=== PATIENT | female | born 1980 | race Hispanic/Latino ===

== ENCOUNTER 2017-03-09 19:19 | Emergency (ER) | payer OTHER ==
[2017-03-09 19:45] VITALS: O2SAT 98
--- NOTE | 2017-03-09 21:52 | ED.PDOC ---
History of Present Illness - General Chief Complaint: Abdominal Pain Stated Complaint: RLQ pain, 6wks Time Seen by Provider: 03/09/17 19:30 Source: patient, RN notes reviewed, Vital Signs reviewed, family Additional Information: Pt reports IUI with 4 gestations - followed by fertility specialist in [place]. Pt reports vaginal bleeding and cramping for a few hours. Pt also has some nausea and vomiting. Otherwise, no distress at rest. - History of Present Illness Timing/Duration: other - cramping started today, spotting started 4 days ago with more bright blood today. Quality: cramping Onset Location: vaginal Radiation: suprapubic Activites at Onset: none, other - sexually active prior to onset of cramping Improving Factors: nothing Worsening Factors: nothing Associated Symptoms: nausea/vomiting Allergies/Adverse Reactions: Allergies NO KNOWN ALLERGY Allergy (Verified 03/09/17 19:45) Review of Systems - Review of Systems Constitutional: States: no symptoms reported EENTM: States: no symptoms reported Respiratory: States: no symptoms reported Cardiology: States: no symptoms reported Gastrointestinal/Abdominal: States: see HPI Genitourinary: States: see HPI Musculoskeletal: States: no symptoms reported Skin: States: no symptoms reported Neurological: States: no symptoms reported Endocrine: States: no symptoms reported Hematologic/Lymphatic: States: no symptoms reported Past Medical History (General) - Patient Medical History Hx Seizures: No Hx Stroke: No Hx Dementia: No Hx Asthma: No Hx of COPD: No Hx Cardiac Disorders: No Hx Congestive Heart Failure: No Hx Pacemaker: No Hx Hypertension: No Hx Thyroid Disease: No Hx Diabetes: No Hx Gastroesophageal Reflux: No Hx Renal Disease: No Hx Cancer: No Hx of HIV: No Hx Hepatitis C: No Hx MRSA: No Surgical History: other - Vaccination History Hx Tetanus, Diphtheria Vaccination: No Hx Influenza Vaccination: No Hx Pneumococcal Vaccination: No - Social History Hx Tobacco Use: No Hx Alcohol Use: No Hx Substance Use: No Hx Substance Use Treatment: No Hx Depression: No - Female History Patient is a Female of Child Bearing Age (10 -59 yrs old): Yes Hx Last Menstrual Period: 01/19/17 Patient : Yes Hx Gestational Age: 8 Family Medical History - Family History Mother Living Status: Still Living Hx Family Hypertension: Yes Hx Family Diabetes: Yes - grandmother Hx Family Cancer: Yes - aunt -breast Physical Exam - Physical Exam General Appearance: Alert, Comfortable, No apparent distress - at rest, Well Developed, Well Groomed, Well Hydrated, Well Nourished Eyes, Ears, Nose, Throat Exam: PERRL/EOMI, normal ENT inspection, pharynx normal Neck: non-tender, full range of motion, supple, normal inspection Cardiovascular/Respiratory: regular rate, rhythm, normal peripheral pulses, no respiratory distress Gastrointestinal/Abdominal: non tender, soft Pelvic Exam: external exam normal, blood - in vaginal vault (less than 5 ml) with no active cervical bleeding noted Back Exam: normal inspection Extremity: normal range of motion, non-tender, normal inspection 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 Limited Bedside Ultrasound showed 4 intrauterine gestations with cardiac activity. Threatened miscarriage by definition. Patient stable for discharge with guidance for pelvic rest and Patient advised to call her repro endo with an update on her status. - Results/Orders Results/Orders: 03/09/17 17:30 URINE CULTURE W/COLONY COUNT Stat 03/09/17 20:33 GC CHLAMYDIA RNA,TMA Stat Laboratory Results - last 24 hr 03/09/17 03/09/17 03/09/17 17:30 19:43 19:43 WBC 9.6 RBC 4.09 L Hgb 13.2 Hct 38.4 MCV 94.0 MCH 32.2 H MCHC 34.3 RDW 13.0 Plt Count 274 MPV 8.5 Absolute Neuts (auto) 7.40 H Absolute Lymphs (auto) 1.50 Absolute Monos (auto) 0.60 Absolute Eos (auto) 0.10 Absolute Basos (auto) 0.10 Neutrophils % 76.4 Lymphocytes % 15.7 L Monocytes % 6.4 Eosinophils % 0.8 L Basophils % 0.7 Beta HCG, Quant > 984884.0 H Urine Color Yellow Urine Appearance Clear Urine pH 6.0 Ur Specific Williamson >= 1.030 Urine Protein 30 Urine Glucose (UA) Negative Urine Ketones >=160 Urine Blood Moderate H Urine Nitrite Negative Urine Bilirubin Negative Urine Urobilinogen 0.2 Ur Leukocyte Esterase Negative Urine RBC 10-20 H Urine WBC 20-30 H Ur Epithelial Cells 1-3 Urine Bacteria Rare Urine Mucus Trace Patient ABO/Rh 03/09/17 19:43 WBC RBC Hgb Hct MCV MCH MCHC RDW Plt Count MPV Absolute Neuts (auto) Absolute Lymphs (auto) Absolute Monos (auto) Absolute Eos (auto) Absolute Basos (auto) Neutrophils % Lymphocytes % Monocytes % Eosinophils % Basophils % Beta HCG, Quant Urine Color Urine Appearance Urine pH Ur Specific Williamson Urine Protein Urine Glucose (UA) Urine Ketones Urine Blood Urine Nitrite Urine Bilirubin Urine Urobilinogen Ur Leukocyte Esterase Urine RBC Urine WBC Ur Epithelial Cells Urine Bacteria Urine Mucus Patient ABO/Rh A POSITIVE Departure - Departure Clinical Impression: Threatened in early Time of Disposition: 21:59 Disposition: Discharge to Home or Self Care Condition: Fair Departure Forms: ED Discharge - Pt. Copy, Patient Portal Self Enrollment Instructions: DI for Threatened Additional Instructions: Call Fertility Specialist On-Call to let them know that you went to the ER for bleeding. Your quantitative hCG was >274,000 and a limited bedside ultrasound showed 4 intrauterine gestational sacs with a fetus in each sac and detectable cardiac activity. Your pelvic exam had about 5 mls of fresh blood in the vaginal vault but no active bleeding seen from the cervix once this blood was cleared. No intercourse until cleared by your OB provider. Return to ER if condition worsens - severe pain, unable to function.
[2017-03-09 22:14] VITALS: BP 117/74; TEMP 97.8
== END 2017-03-09 22:05 | disposition home or self-care (01) ==
LOC: ER 19:19
DX: O20.0 Threatened abortion (principal); Z3A.01 Less than 8 weeks gestation of pregnancy

== ENCOUNTER 2017-03-15 21:23 | Emergency (ER) | payer OTHER ==
[2017-03-15] MEDS ORDERED: LACTATED RINGERS 1,000 ML IVS ONE ×2 (22:05→23:47)
--- NOTE | 2017-03-15 22:05 | ED.PDOC ---
History of Present Illness - General Chief Complaint: EXTERMINATOR TERMITE Problem Stated Complaint: abd cramping, 8wk gest Time Seen by Provider: 03/15/17 21:50 Source: patient Exam Limitations: no limitations - History of Present Illness Initial Comments: Giuliana Ayon 36 y/o female Ab0 stated that she had IUI in January [address] Doug[place] in [place] and 6 days ago was seen here in ER 03/09/2017 with lower abdominal pain pain and vaginal spotting sent home and advised to rest had followed up with her fertility md 03/11/2017 and was treated for uti OB -SONO done showing 4 fetus intrauterine sent home and advised could go back to work.But today having more vaginal spotting and lower abdominal pains Timing/Duration: getting worse, intermittent, other - 6 days ago Quality: intermittent, throbbing Onset Location: suprapubic Activites at Onset: none Prior abdominal problems: similar symptoms Sexual intercourse history: other - multiple fetus Improving Factors: nothing, eating Associated Symptoms: other - see hpi Allergies/Adverse Reactions: Allergies NO KNOWN ALLERGY Allergy (Verified 03/15/17 21:55) Review of Systems - Review of Systems Constitutional: States: no symptoms reported EENTM: States: no symptoms reported Respiratory: States: no symptoms reported Cardiology: States: no symptoms reported Gastrointestinal/Abdominal: States: see HPI Genitourinary: States: no symptoms reported Past Medical History (General) - Patient Medical History Hx Seizures: No Hx Stroke: No Hx Dementia: No Hx Asthma: No Hx of COPD: No Hx Cardiac Disorders: No Hx Congestive Heart Failure: No Hx Pacemaker: No Hx Hypertension: No Hx Thyroid Disease: No Hx Diabetes: No Hx Gastroesophageal Reflux: No Hx Renal Disease: No Hx Cancer: No Hx of HIV: No Hx Hepatitis C: No Hx MRSA: No Surgical History: other - intrauterine insemination - Vaccination History Hx Tetanus, Diphtheria Vaccination: No Hx Influenza Vaccination: No Hx Pneumococcal Vaccination: No Immunizations Up to Date: No - Social History Hx Tobacco Use: No Hx Alcohol Use: No Hx Substance Use: No Hx Substance Use Treatment: No Hx Depression: No - Female History Hx Last Menstrual Period: 01/19/17 Patient : Yes Hx Gestational Age: 8 Family Medical History - Family History Mother Living Status: Still Living Hx Family Hypertension: Yes Hx Family Diabetes: Yes - grandmother Hx Family Cancer: Yes - aunt -breast Physical Exam - Physical Exam General Appearance: Anxious, No apparent distress Eyes, Ears, Nose, Throat Exam: PERRL/EOMI, normal ENT inspection Cardiovascular/Respiratory: regular rate, rhythm, normal peripheral pulses, no respiratory distress Gastrointestinal/Abdominal: distended, tenderness - lower abdomen Pelvic Exam: other - vaginal exam-cervix closed no bleeding noted examining finger Progress - Progress Progress: 03/16/17 00:02 Vital Signs - 8 hr 03/15/17 03/15/17 03/15/17 21:49 22:52 23:27 Temperature 97.7 F Pulse Rate [ 65 72 80 left] Respiratory 18 18 18 Rate Blood Pressure 84/61 76/56 84/52 [left] O2 Sat by Pulse 98 99 99 Oximetry - Results/Orders Results/Orders: 03/15/17 23:47 Lactated Ringers [Lr] 1,000 ml IVS ONCE Laboratory Results - last 24 hr 03/15/17 22:40 WBC 12.6 H RBC 3.55 L Hgb 11.2 L Hct 33.6 L MCV 94.6 MCH 31.5 H MCHC 33.5 RDW 13.0 Plt Count 212 Previous records reviewed blood pressure was noted to be bp-110/60 on her last visit last week her hgb-was 13 now 11.2 as well as her blood pressure was low.Discuss with patient need to be transferred to higher level of care since there might be possibility of ectopic and no ob -sono in hospital Departure - Departure Clinical Impression: with 5 or more fetuses in first trimester, Threatened in first trimester, Maternal hypotension syndrome, first trimester Time of Disposition: 00:10 Disposition: Transfer to Hospital Condition: Fair Departure Forms: Patient Portal Self Enrollment Transfer to Outside Facility - Transfer Information Accepting Provider:: D/W Dr. Peraza-OB Accepting Facility: [facility] Reason for Transfer: required specialist not available
[2017-03-15 23:02] VITALS: O2SAT 99
[2017-03-15] MEDS ORDERED: fentaNYL CITRATE INJ 50 MCG/ML AMP IV ONE (23:02)
[2017-03-15] MEDS ORDERED: SODIUM CHLORIDE 0.9% 1000ML 1,000 ML ONE (23:45)
[2017-03-16] MEDS ORDERED: fentaNYL CITRATE INJ 50 MCG/ML AMP IV ONE (00:17)
[2017-03-16 01:27] VITALS: BP 93/59; TEMP 97
== END 2017-03-16 00:50 | disposition short-term general hospital (02) ==
LOC: ER 21:23
DX: O00-O9A Pregnancy, childbirth and the puerperium (principal); O26.51 Maternal hypotension syndrome, first trimester; O20.0 Threatened abortion; Z3A.08 8 weeks gestation of pregnancy
CPT/HCPCS: 36415; J3010; J7120